=== PATIENT | male | born 1950 | race Caucasian/White ===

== ENCOUNTER 2016-10-06 15:01 | Emergency (ER) | payer MEDICARE ==
[~2016-10-06 15:01] MED LIST: ACET325T21 PO; CEFT2FRO2 IV; GUAI5SYR PO; HEPA5000 SQ; IPRA3AMP NPPB; METR500P29 IV; Nicotine TD; ONDA4VIA4 IVP; POLY17PO5 PO; PRED10TA PO; SENN1TAB7 PO
[2016-10-06] MEDS ORDERED: HYDROcodone/APAP 5/325 TABLET ONE (15:17)
[2016-10-06] MEDS ORDERED: KETOROLAC 30 MG/1 ML ONE (15:17)
[2016-10-06] MEDS ORDERED: METHOCARBAMOL 750 MG TABLET ONE (15:17)
[2016-10-06] MEDS ORDERED: HYDROcodone/APAP 5/325 TABLET PO ONE (15:30)
[2016-10-06] MEDS ORDERED: KETOROLAC 30 MG/1 ML IM ONE (15:30)
[2016-10-06] MEDS ORDERED: METHOCARBAMOL 750 MG TABLET PO ONE (15:30)
[2016-10-06] MEDS ORDERED: PLEASE ENTER HEIGHT AND WEIGHT MC SCH (16:00)
[2016-10-06 19:34] VITALS: BP 122/78
== END 2016-10-06 19:37 | disposition home or self-care (01) ==
LOC: ED 15:16
DX: M51.16 Intervertebral disc disorders with radiculopathy, lumbar region (principal); M51.26 Other intervertebral disc displacement, lumbar region; F17.200 Nicotine dependence, unspecified, uncomplicated
CPT/HCPCS: 72148; 96372; 99284; J1885

== ENCOUNTER 2016-11-05 22:18 | Emergency (ER) | payer SELFPAY ==
[2016-11-05 22:21] VITALS: BP 132/81
== END 2016-11-05 23:16 | disposition home or self-care (01) ==
LOC: ED 23:10
DX: R21 Rash and other nonspecific skin eruption (principal); W57.XXXA Bitten or stung by nonvenomous insect and other nonvenomous arthropods, initial encounter; Y93.89 Activity, other specified; Y99.8 Other external cause status; Y92.89 Other specified places as the place of occurrence of the external cause
CPT/HCPCS: 99283

== ENCOUNTER 2016-12-03 11:15 | Inpatient (IN) | payer MEDICARE ==
[~2016-12-03] VITALS: Ht 172.7 cm; Wt 64.2 kg
[2016-12-03] MEDS ORDERED: SODIUM CHLORIDE 0.9% 1,000 ML IV ONE (11:23)
[2016-12-03] MEDS ORDERED: SODIUM CHLORIDE FLUSH 10ML SYR IVF ONE (11:30)
[2016-12-03] MEDS ORDERED: PLEASE ENTER HEIGHT AND WEIGHT MC SCH (11:30)
[2016-12-03 12:23] LABS: ASPARTATE AMINO TRANSFERASE 7 U/L (15-37); BLOOD UREA NITROGEN 19 mg/dL (7-18)
[2016-12-03 12:29] LABS: IS PT STATUS REG ER OR PRE ER? YES
[2016-12-03] MEDS ORDERED: ALBUTEROL/IPRATROPIUM 2.5MG/0.5MG, 3 ML NPPB ONE (12:30)
[2016-12-03] MEDS ORDERED: SODIUM CHLORIDE FLUSH 10ML SYR IVF PRN (15:00)
[2016-12-03] MEDS ORDERED: ONDANSETRON 2MG/ML, 2ML IVPush PRN (15:00)
[2016-12-03] MEDS ORDERED: ENALAPRILAT 1.25 MG/ML, 2ML IVPush PRN (15:00)
[2016-12-03] MEDS ORDERED: ACETAMINOPHEN 325 MG TABLET PO PRN (15:00)
[2016-12-03] MEDS ORDERED: POLYETHYLENE GLYCOL 17 GM PACKET PO PRN (15:00)
[2016-12-03] MEDS ORDERED: methylPREDNISolone SOD SUCC 125 MG/2 ML ONE (16:40)
[2016-12-03] MEDS ORDERED: ENOXAPARIN 40 MG/0.4 ML ONE (16:40)
[2016-12-03] MEDS: methylPREDNISolone SOD SUCC 125 MG/2 ML IVPush SCH ×2 (16:46→20:55)
[2016-12-03] MEDS: ENOXAPARIN 40 MG/0.4 ML SQ SCH (16:46)
[2016-12-03] MEDS: AZITHROMYCIN 500 MG in SODIUM CHLORIDE 0.9% 250 ML IV SCH (16:46)
[2016-12-03 17:39] VITALS: BP 120/71
[2016-12-03] MEDS: HYDROcodone/APAP 5/325 TABLET PO PRN (18:39)
[2016-12-03 19:42] VITALS: BP 124/83
[2016-12-03] MEDS: ALBUTEROL/IPRATROPIUM 2.5MG/0.5MG, 3 ML NPPB SCH (19:55)
[2016-12-03] MEDS: NICOTINE 21 MG/24 HR PATCH.TD24 TD SCH (20:55)
[2016-12-04 02:15] VITALS: BP 124/77
[2016-12-04] MEDS: methylPREDNISolone SOD SUCC 125 MG/2 ML IVPush SCH ×4 (03:46→20:42)
[2016-12-04] MEDS: ALBUTEROL/IPRATROPIUM 2.5MG/0.5MG, 3 ML NPPB SCH ×4 (06:52→20:00)
[2016-12-04 07:05] VITALS: BP 149/85
[2016-12-04] MEDS: HYDROcodone/APAP 5/325 TABLET PO PRN ×2 (09:43→19:23)
[2016-12-04] MEDS: morphine SULFATE 10 MG/ML, 1ML IVPush PRN (11:12)
[2016-12-04 12:25] VITALS: BP 132/69
[2016-12-04] MEDS ORDERED: SODIUM CHLORIDE 0.9% 1,000 ML IV ONE ×2 (14:30→14:33)
[2016-12-04] MEDS: ENOXAPARIN 40 MG/0.4 ML SQ SCH (16:20)
[2016-12-04] MEDS: AZITHROMYCIN 500 MG in SODIUM CHLORIDE 0.9% 250 ML IV SCH (16:20)
[2016-12-04 19:10] VITALS: BP 129/72
[2016-12-04] MEDS: NICOTINE 21 MG/24 HR PATCH.TD24 TD SCH (20:44)
[2016-12-05 02:21] VITALS: BP 130/80
[2016-12-05] MEDS: methylPREDNISolone SOD SUCC 125 MG/2 ML IVPush SCH ×4 (03:03→20:39)
[2016-12-05] MEDS: HYDROcodone/APAP 5/325 TABLET PO PRN ×4 (04:11→20:37)
[2016-12-05] MEDS: ALBUTEROL/IPRATROPIUM 2.5MG/0.5MG, 3 ML NPPB SCH ×4 (07:00→20:00)
[2016-12-05 08:49] VITALS: BP 115/68
[2016-12-05] MEDS: ENOXAPARIN 40 MG/0.4 ML SQ SCH (16:02)
[2016-12-05] MEDS: AZITHROMYCIN 500 MG in SODIUM CHLORIDE 0.9% 250 ML IV SCH (16:02)
[2016-12-05 16:23] VITALS: BP 110/67
[2016-12-05 20:29] VITALS: BP 107/64
[2016-12-05] MEDS: NICOTINE 21 MG/24 HR PATCH.TD24 TD SCH (20:40)
[2016-12-06] MEDS: methylPREDNISolone SOD SUCC 125 MG/2 ML IVPush SCH ×4 (02:42→20:16)
[2016-12-06 03:07] VITALS: BP 157/80
[2016-12-06 07:48] VITALS: BP 131/77
[2016-12-06] MEDS: ALBUTEROL/IPRATROPIUM 2.5MG/0.5MG, 3 ML NPPB SCH ×5 (07:50→19:48)
[2016-12-06] MEDS: HYDROcodone/APAP 5/325 TABLET PO PRN ×2 (09:00→15:06)
[2016-12-06 13:57] VITALS: BP 136/77
[2016-12-06] MEDS: ENOXAPARIN 40 MG/0.4 ML SQ SCH (15:06)
[2016-12-06] MEDS: AZITHROMYCIN 500 MG in SODIUM CHLORIDE 0.9% 250 ML IV SCH (16:08)
[2016-12-06] MEDS: morphine SULFATE 10 MG/ML, 1ML IVPush PRN (16:11)
[2016-12-06 19:16] VITALS: BP 124/72
[2016-12-06] MEDS: NICOTINE 21 MG/24 HR PATCH.TD24 TD SCH (20:17)
[2016-12-07 02:04] VITALS: BP 138/76
[2016-12-07] MEDS: HYDROcodone/APAP 5/325 TABLET PO PRN ×3 (02:17→15:22)
[2016-12-07] MEDS: methylPREDNISolone SOD SUCC 125 MG/2 ML IVPush SCH ×4 (02:22→19:30)
[2016-12-07] MEDS: ALBUTEROL/IPRATROPIUM 2.5MG/0.5MG, 3 ML NPPB SCH ×4 (06:43→19:55)
[2016-12-07 08:22] VITALS: BP 154/84
[2016-12-07 14:42] VITALS: BP 152/78
[2016-12-07] MEDS: AZITHROMYCIN 500 MG in SODIUM CHLORIDE 0.9% 250 ML IV SCH (15:22)
[2016-12-07] MEDS: ENOXAPARIN 40 MG/0.4 ML SQ SCH (15:22)
[2016-12-07 19:03] VITALS: BP 151/92
[2016-12-07] MEDS: NICOTINE 21 MG/24 HR PATCH.TD24 TD SCH (19:32)
[2016-12-07] MEDS ORDERED: CALCIUM CARBONATE 500 MG TAB.CHEW PO PRN (23:30)
[2016-12-08 01:58] VITALS: BP 130/66
[2016-12-08] MEDS: methylPREDNISolone SOD SUCC 125 MG/2 ML IVPush SCH ×2 (02:53→09:15)
[2016-12-08] MEDS: ALBUTEROL/IPRATROPIUM 2.5MG/0.5MG, 3 ML NPPB SCH (06:40)
[2016-12-08 06:48] VITALS: BP 154/84
[2016-12-08] MEDS: HYDROcodone/APAP 5/325 TABLET PO PRN (07:31)
[2016-12-08] MEDS ORDERED: PRED10TA14 PO (09:30)
[2016-12-08] MEDS ORDERED: CALC200T24 PO (09:30)
[2016-12-08] MEDS ORDERED: POLY17PO5 PO (09:30)
[2016-12-08] MEDS ORDERED: IPRA3AMP NPPB (09:30)
[2016-12-08] MEDS ORDERED: HYDR-3240 PO (09:30)
[2016-12-08] MEDS ORDERED: TRAM50TA2 PO (09:30)
[2016-12-08] MEDS ORDERED: NICO1PAT5 TD (09:30)
[2016-12-08] MEDS ORDERED: ALBUTEROL/IPRATROPIUM 2.5MG/0.5MG, 3 ML NPPB SCH (16:00)
== END 2016-12-08 13:20 | DRG 291 ==
LOC: SUATTDRO 14:13 → ED 14:38 → EDIP 14:39 → ED 14:55 → 3NE 17:18
PROVIDERS: ADMIT Internal Medicine; ATTEND Internal Medicine
DX: I11.0 Hypertensive heart disease with heart failure (principal); J96.00 Acute respiratory failure, unspecified whether with hypoxia or hypercapnia; J44.1 Chronic obstructive pulmonary disease with (acute) exacerbation; I50.32 Chronic diastolic (congestive) heart failure; G89.29 Other chronic pain; R26.2 Difficulty in walking, not elsewhere classified; M54.5 Low back pain; F10.20 Alcohol dependence, uncomplicated; Y90.9 Presence of alcohol in blood, level not specified; D64.9 Anemia, unspecified; M48.06 Spinal stenosis, lumbar region; M48.04 Spinal stenosis, thoracic region; D75.89 Other specified diseases of blood and blood-forming organs; F17.200 Nicotine dependence, unspecified, uncomplicated; Z59.0 Homelessness; Z87.01 Personal history of pneumonia (recurrent); Z86.19 Personal history of other infectious and parasitic diseases; Z79.899 Other long term (current) drug therapy
CPT/HCPCS: 36415; 71020; 72148; 80053; 80307; 83605; 83880; 84443; 84484; 85025; 85610; 85730; 87040; 93005; 94640; 96372; 96374; J0456; J1650; J7620; J2270; J2930; J7030; J7050